=== PATIENT | female | born 1990 | race Caucasian/White ===

== ENCOUNTER → 2016-11-24 | Outpatient (CLI) | payer MEDICAID ==
[~2016-11-24] MED LIST: ACID REDUCER 1150 MG PO; ADVIL LIQUI-GE200 MG PO; BACLOFEN10 M1 PO; BENTYL 20MG TAB20 MG PO; CIPRO 250MG TA250 MG PO; DAYQUIL COLD/FL1 SGL PO; ED ZOFRAN4 TAB/BOTT PO; HCTZ 25MG25 MG PO; LEXAPRO 10MG10 MG PO; METOPROLOL SUCC25 M1 PO; PREDNISONE20 MG PO; PREMIERPRO RX5 MG/GM OP; TUSS PO; XANAX 0.5MG0.5 MG PO
== END ==
LOC: RAD 11:24
DX: E07.89 Other specified disorders of thyroid (principal); E04.1 Nontoxic single thyroid nodule

== ENCOUNTER → 2017-02-22 | Outpatient (CLI) | payer MEDICAID | LOC: LAB 11:18 | DX: Z01.419 Encounter for gynecological examination (general) (routine) without abnormal findings (principal); E66.01 Morbid (severe) obesity due to excess calories; F41.8 Other specified anxiety disorders; E07.89 Other specified disorders of thyroid; Z86.19 Personal history of other infectious and parasitic diseases | CPT/HCPCS: Q0111 ==

== ENCOUNTER → 2017-06-05 | Outpatient (CLI) | payer MEDICAID ==
[2016-10-21 11:30] VITALS: BP 127/84
== END ==
LOC: LAB 12:05
DX: E07.89 Other specified disorders of thyroid (principal)

== ENCOUNTER 2017-06-08 19:49 | Emergency (ER) | payer MEDICAID ==
[~2017-06-08] VITALS: Ht 162.6 cm; Wt 137.3 kg
[~2017-06-08 19:49] MED LIST changes: -METOPROLOL SUCC25 M1 PO
[2017-06-08] MEDS ORDERED: METOPROLOL SUCC25 M1 PO (20:09)
[2017-06-08 21:22] VITALS: BP 139/93
== END 2017-06-08 21:19 | disposition home or self-care (01) ==
LOC: ED 19:49
DX: S31.41XA Laceration without foreign body of vagina and vulva, initial encounter (principal); X58.XXXA Exposure to other specified factors, initial encounter; I10 Essential (primary) hypertension; F17.210 Nicotine dependence, cigarettes, uncomplicated; F41.9 Anxiety disorder, unspecified

== ENCOUNTER → 2017-06-08 | Outpatient (CLI) | payer MEDICAID ==
[2016-10-21 11:30] VITALS: BP 127/84
== END ==
LOC: LAB 10:27
DX: N93.9 Abnormal uterine and vaginal bleeding, unspecified (principal); B95.1 Streptococcus, group B, as the cause of diseases classified elsewhere; Z87.59 Personal history of other complications of pregnancy, childbirth and the puerperium
CPT/HCPCS: Q0111

== ENCOUNTER → 2017-08-17 | Outpatient (CLI) | payer MEDICAID ==
[~2017-08-17] MED LIST changes: +METOPROLOL SUCC25 M1 PO
== END ==
LOC: LAB 09:13
DX: R53.83 Other fatigue (principal); T68.XXXA Hypothermia, initial encounter; E07.89 Other specified disorders of thyroid

== ENCOUNTER → 2017-09-12 | Outpatient (CLI) | payer MEDICAID ==
[2017-09-12 13:57] LABS: EOS # 0.1 (0.04-0.40); EOS % 1.2 % (1.0-5.0); HEMOGLOBIN 14.5 g/dL (12.5-16.0); LYMPH# 1.9 (1.50-4.00); MEAN CELL VOLUME 84 fl (78-100); MEAN CORPUSCULAR HEMOGLOBIN 28 pg (27-31); MEAN CORPUSCULAR HGB CONC 34 g/dL (33-37); MEAN PLATELET VOLUME 10.5 fl (7.4-10.4); MONO # 0.6 (0.20-0.80); PLATELET COUNT 235 K/mm3 (130-400); RED BLOOD COUNT 5.13 M/mm3 (4.10-5.30); RED CELL DISTRIBUTION WIDTH 12.8 % (11.5-14.5); WHITE BLOOD COUNT 7.6 K/mm3 (4.8-10.8)
[2017-09-12 14:10] LABS: ALBUMIN 3.9 g/dL (3.5-5.0); BUN/CREATININE RATIO 12.4 (6.0-26.0); CALCIUM 9.3 mg/dL (8.4-10.2); POTASSIUM 3.3 mmol/L (3.6-5.0); TOTAL PROTEIN 7.8 g/dL (6.3-8.2)
[2017-09-12 14:14] LABS: URINE APPEARANCE CLEAR; URINE BILIRUBIN NEGATIVE (NEGATIVE); URINE BLOOD 50 ery/uL (NEGATIVE); URINE COLOR YELLOW; URINE GLUCOSE NEGATIVE (NEGATIVE); URINE KETONE NEGATIVE (NEGATIVE); URINE LEUKOCYTE ESTERASE NEGATIVE (NEGATIVE); URINE NITRATE NEGATIVE (NEGATIVE); URINE PROTEIN(semi-quant) NEGATIVE (NEGATIVE); URINE UROBILINOGEN NORMAL (NORMAL); URINE WBC 0-1 /hpf (0-3)
== END ==
LOC: LAB 13:40
PROVIDERS: Nurse Practitioner Family
DX: R10.84 Generalized abdominal pain (principal)

== ENCOUNTER → 2017-11-17 | Outpatient (CLI) | payer MEDICAID | LOC: LAB 16:06 | DX: I10 Essential (primary) hypertension (principal); Z88.5 Allergy status to narcotic agent ==

== ENCOUNTER → 2018-03-12 | Outpatient (CLI) | payer MEDICAID | LOC: RAD 15:03 | DX: M79.644 Pain in right finger(s) (principal); Z88.5 Allergy status to narcotic agent ==

== ENCOUNTER 2019-03-03 12:15 | Emergency (ER) | payer MEDICAID ==
[~2019-03-03] VITALS: Ht 162.6 cm; Wt 134.5 kg
[2019-03-03] MEDS ORDERED: TYLENOL EXTRA500 M2 PO (12:26)
[2019-03-03 14:14] VITALS: BP 137/71
== END 2019-03-03 14:14 | disposition home or self-care (01) ==
LOC: ED 12:15
DX: S93.401A Sprain of unspecified ligament of right ankle, initial encounter (principal); F41.9 Anxiety disorder, unspecified; Q60.0 Renal agenesis, unilateral; W00.1XXA Fall from stairs and steps due to ice and snow, initial encounter; Y92.009 Unspecified place in unspecified non-institutional (private) residence as the place of occurrence of the external cause
CPT/HCPCS: J1885

== ENCOUNTER → 2019-05-24 | Outpatient (CLI) | payer MEDICAID ==
[~2019-05-24] MED LIST changes: +TYLENOL EXTRA500 M2 PO
[2019-05-24 12:49] LABS: CLUE CELLS NOT OBSERVED (Not Observd)
== END ==
LOC: LAB 12:34
PROVIDERS: Physician Assistant
DX: N89.8 Other specified noninflammatory disorders of vagina (principal)
CPT/HCPCS: Q0111

== ENCOUNTER → 2020-02-05 | Outpatient (CLI) | payer MEDICAID ==
[2020-02-05 10:55] LABS: POTASSIUM 3.8 mmol/L (3.5-5.1)
[2020-02-05 10:56] LABS: ALBUMIN 3.9 g/dL (3.5-5.0)
[2020-02-05 10:57] LABS: CALCIUM 9.1 mg/dL (8.3-10.5)
[2020-02-05 10:58] LABS: TOTAL PROTEIN 7.8 g/dL (6.4-8.3)
[2020-02-05 11:00] LABS: TOTAL BILIRUBIN 1.2 mg/dL (0.2-1.2)
== END ==
LOC: LAB 10:36
PROVIDERS: Family Medicine
DX: E28.2 Polycystic ovarian syndrome (principal); N64.4 Mastodynia; N92.6 Irregular menstruation, unspecified

== ENCOUNTER → 2020-09-17 | Outpatient (CLI) | payer MEDICAID | LOC: RAD 10:22 | DX: G43.009 Migraine without aura, not intractable, without status migrainosus (principal); H47.10 Unspecified papilledema | CPT/HCPCS: A9585 ==

== ENCOUNTER → 2021-02-02 | Outpatient (CLI) | payer MEDICAID | LOC: LAB 09:05 | DX: Z20.822 Contact with and (suspected) exposure to COVID-19 (principal) ==

== ENCOUNTER 2021-05-10 17:39 | Emergency (ER) | payer MEDICAID ==
[2021-05-10 18:58] LABS: BASO # 0.03 (0.02-0.10); EOS % 1.1 % (1.0-5.0); HEMATOCRIT 43.1 % (37.0-47.0); HEMOGLOBIN 14.2 g/dL (12.5-16.0); LYMPH# 1.75 (1.50-4.00); MEAN CELL VOLUME 86 fl (78-100); MEAN CORPUSCULAR HEMOGLOBIN 28 pg (27-31); MEAN CORPUSCULAR HGB CONC 33 g/dL (33-37); MEAN PLATELET VOLUME 10.7 fl (7.4-10.4); MONO # 0.67 (0.20-0.80); NEU # 6.16 (1.40-6.50); PLATELET COUNT 226 K/mm3 (130-400); RED CELL DISTRIBUTION WIDTH 12.7 % (11.5-14.5); WHITE BLOOD COUNT 8.7 K/mm3 (4.8-10.8)
[2021-05-10 19:17] LABS: ALBUMIN 3.7 g/dL (3.5-5.0); POTASSIUM 3.9 mmol/L (3.5-5.1)
[2021-05-10 19:19] LABS: CALCIUM 8.8 mg/dL (8.3-10.5)
[2021-05-10 19:20] LABS: TOTAL PROTEIN 7.2 g/dL (6.4-8.3)
[2021-05-10 19:22] LABS: TOTAL BILIRUBIN 1.3 mg/dL (0.2-1.2)
[2021-05-10 20:44] VITALS: BP 145/90
== END 2021-05-10 20:44 | disposition home or self-care (01) ==
LOC: ED 17:39
PROVIDERS: Nurse Practitioner
DX: S29.011A Strain of muscle and tendon of front wall of thorax, initial encounter (principal); Z88.6 Allergy status to analgesic agent; X58.XXXA Exposure to other specified factors, initial encounter; Y99.0 Civilian activity done for income or pay
CPT/HCPCS: J1885

== ENCOUNTER → 2021-08-18 | Outpatient (CLI) | payer MEDICAID ==
[2021-08-18 17:13] LABS: POTASSIUM 3.6 mmol/L (3.5-5.1)
[2021-08-18 17:14] LABS: CALCIUM 9.6 mg/dL (8.3-10.5)
== END ==
LOC: LAB 16:50
PROVIDERS: Family Medicine
DX: R13.10 Dysphagia, unspecified (principal)

== ENCOUNTER 2021-08-26 12:37 | Outpatient (RCR) | payer MEDICAID | END 2021-11-24 | disposition home or self-care (01) | LOC: LAB | DX: K21.00 Gastro-esophageal reflux disease with esophagitis, without bleeding (principal) ==

== ENCOUNTER 2021-11-01 22:23 | Emergency (ER) | payer MEDICAID ==
[~2021-11-01] VITALS: Ht 162.6 cm; Wt 136.4 kg
[2021-11-01 22:57] LABS: HEMATOCRIT 44.7 % (37.0-47.0); HEMOGLOBIN 14.9 g/dL (12.5-16.0); MEAN CELL VOLUME 88 fl (78-100); MEAN CORPUSCULAR HEMOGLOBIN 29 pg (27-31); MEAN CORPUSCULAR HGB CONC 33 g/dL (33-37); MEAN PLATELET VOLUME 10.8 fl (7.4-10.4); PLATELET COUNT 186 K/mm3 (130-400); RED BLOOD COUNT 5.09 M/mm3 (4.10-5.30); RED CELL DISTRIBUTION WIDTH 12.4 % (11.5-14.5); WHITE BLOOD COUNT 5.5 K/mm3 (4.8-10.8)
[2021-11-01 23:10] LABS: ALBUMIN 3.9 g/dL (3.5-5.0); POTASSIUM 3.5 mmol/L (3.5-5.1)
[2021-11-01 23:13] LABS: TOTAL PROTEIN 7.3 g/dL (6.4-8.3)
[2021-11-01 23:15] LABS: TOTAL BILIRUBIN 1.3 mg/dL (0.2-1.2)
[2021-11-01 23:27] LABS: LYMPHOCYTE 5 % (20-51); MONOCYTE 6 % (3-10); NEUTROPHILS 89 % (42-75)
[2021-11-02 00:08] VITALS: BP 120/81
== END 2021-11-02 00:08 | disposition home or self-care (01) ==
LOC: ED 22:23
PROVIDERS: Nurse Practitioner
DX: U07.1 COVID-19 (principal); J98.8 Other specified respiratory disorders

== ENCOUNTER → 2021-12-06 | Outpatient (CLI) | payer MEDICAID | LOC: LAB 18:01 | DX: U07.1 COVID-19 (principal) ==

== ENCOUNTER → 2022-02-25 | Outpatient (CLI) | payer MEDICAID ==
[2022-02-25 12:26] LABS: POTASSIUM 3.9 mmol/L (3.5-5.1)
[2022-02-25 12:27] LABS: ALBUMIN 3.8 g/dL (3.5-5.0)
[2022-02-25 12:28] LABS: CALCIUM 9.2 mg/dL (8.3-10.5)
[2022-02-25 12:29] LABS: TOTAL PROTEIN 7.3 g/dL (6.4-8.3)
[2022-02-25 12:31] LABS: TOTAL BILIRUBIN 1.3 mg/dL (0.2-1.2)
[2022-02-26 01:50] LABS: PROGESTERONE 0.2 ng/mL (())
== END ==
LOC: LAB 11:54
PROVIDERS: Family Medicine
DX: E28.2 Polycystic ovarian syndrome (principal); Z86.16 Personal history of COVID-19

== ENCOUNTER → 2022-06-17 | Outpatient (CLI) | payer MEDICAID ==
[2022-06-17 13:58] LABS: BASO # 0.04 K/mm3 (0.02-0.10); EOS % 1.3 % (1.0-5.0); HEMATOCRIT 44.7 % (37.0-47.0); HEMOGLOBIN 14.6 g/dL (12.5-16.0); LYMPH# 2.23 K/mm3 (1.50-4.00); MEAN CELL VOLUME 88 fl (78-100); MEAN CORPUSCULAR HEMOGLOBIN 29 pg (27-31); MEAN CORPUSCULAR HGB CONC 33 g/dL (33-37); MEAN PLATELET VOLUME 10.7 fl (7.4-10.4); MONO # 0.65 K/mm3 (0.20-0.80); NEU # 4.56 K/mm3 (1.40-6.50); PLATELET COUNT 233 K/mm3 (130-400); RED BLOOD COUNT 5.11 M/mm3 (4.10-5.30); RED CELL DISTRIBUTION WIDTH 12.3 % (11.5-14.5); WHITE BLOOD COUNT 7.6 K/mm3 (4.8-10.8)
== END ==
LOC: LAB 13:42
PROVIDERS: Family Medicine
DX: N93.9 Abnormal uterine and vaginal bleeding, unspecified (principal)

== ENCOUNTER → 2022-07-12 | Outpatient (CLI) | payer MEDICAID | LOC: LAB 11:33 | DX: U07.1 COVID-19 (principal) ==

== ENCOUNTER 2022-10-10 22:22 | Emergency (ER) | payer MEDICAID ==
[~2022-10-10] VITALS: Wt 140.9 kg
[2022-10-11 00:59] LABS: BASO # 0.03 K/mm3 (0.02-0.10); EOS # 0.03 K/mm3 (0.04-0.40); EOS % 0.3 % (1.0-5.0); HEMATOCRIT 46.1 % (37.0-47.0); HEMOGLOBIN 15.3 g/dL (12.5-16.0); LYMPH# 1.43 K/mm3 (1.50-4.00); MEAN CELL VOLUME 87 fl (78-100); MEAN CORPUSCULAR HEMOGLOBIN 29 pg (27-31); MEAN CORPUSCULAR HGB CONC 33 g/dL (33-37); MEAN PLATELET VOLUME 11.6 fl (7.4-10.4); MONO # 0.61 K/mm3 (0.20-0.80); NEU # 9.71 K/mm3 (1.40-6.50); PLATELET COUNT 207 K/mm3 (130-400); RED BLOOD COUNT 5.31 M/mm3 (4.10-5.30); RED CELL DISTRIBUTION WIDTH 12.6 % (11.5-14.5); WHITE BLOOD COUNT 11.8 K/mm3 (4.8-10.8)
[2022-10-11 01:12] LABS: POTASSIUM 4.3 mmol/L (3.5-5.1)
[2022-10-11 01:13] LABS: CALCIUM 9.3 mg/dL (8.3-10.5)
[2022-10-11 01:16] LABS: TOTAL BILIRUBIN 2.1 mg/dL (0.2-1.2)
[2022-10-11 01:43] LABS: PH-URINE 6.5 (5.0 - 8.0); URINE APPEARANCE HAZY; URINE BILIRUBIN NEGATIVE (NEGATIVE); URINE BLOOD NEGATIVE (NEGATIVE); URINE COLOR YELLOW; URINE GLUCOSE NEGATIVE (NEGATIVE); URINE KETONE 2+ (NEGATIVE); URINE LEUKOCYTE ESTERASE NEGATIVE (NEGATIVE); URINE MUCUS PRESENT (NOT PRESENT); URINE NITRATE NEGATIVE (NEGATIVE); URINE PROTEIN(semi-quant) TRACE (NEGATIVE); URINE UROBILINOGEN NORMAL (NORMAL); URINE WBC 0-1 /hpf (0-3)
[2022-10-11] MEDS ORDERED: ONDANSETRON HYDR4 MG PO (02:08)
[2022-10-11 03:24] VITALS: BP 142/78
== END 2022-10-11 03:24 | disposition home or self-care (01) ==
LOC: ED 22:22
PROVIDERS: Physician Assistant
DX: K52.9 Noninfective gastroenteritis and colitis, unspecified (principal); Z32.02 Encounter for pregnancy test, result negative; Z28.310 Unvaccinated for COVID-19
CPT/HCPCS: J2550; J7030

== ENCOUNTER → 2024-05-31 | Outpatient (REF) | payer OTHER ==
[~2024-05-31] MED LIST changes: +ONDANSETRON HYDR4 MG PO
[2024-05-31 18:15] LABS: HEMATOCRIT 45.3 % (37.0-47.0); HEMOGLOBIN 14.8 g/dL (12.5-16.0); MEAN PLATELET VOLUME 11.4 fl (7.4-10.4); RED BLOOD COUNT 5.23 M/mm3 (4.10-5.30); RED CELL DISTRIBUTION WIDTH 12.7 % (11.5-14.5); WHITE BLOOD COUNT 5.9 K/mm3 (4.8-10.8)
[2024-05-31 18:18] LABS: CALCIUM 9.4 mg/dL (8.3-10.5)
[2024-05-31 18:20] LABS: TOTAL PROTEIN 7.3 g/dL (6.4-8.3)
[2024-05-31 18:21] LABS: TOTAL BILIRUBIN 1.7 mg/dL (0.2-1.2)
== END ==
LOC: LAB 17:41
PROVIDERS: Nurse Practitioner Family
DX: R52 Pain, unspecified (principal)

== ENCOUNTER 2024-06-22 01:03 | Emergency (ER) | payer OTHER ==
[~2024-06-22] VITALS: Ht 162.6 cm; Wt 130.0 kg
[2024-06-22 01:26] LABS: BASO # 0.03 K/mm3 (0.02-0.10); EOS # 0.07 K/mm3 (0.04-0.40); EOS % 0.8 % (1.0-5.0); HEMATOCRIT 43.2 % (37.0-47.0); HEMOGLOBIN 14.2 g/dL (12.5-16.0); LYMPH# 2.69 K/mm3 (1.50-4.00); MEAN CELL VOLUME 87 fl (78-100); MEAN CORPUSCULAR HEMOGLOBIN 29 pg (27-31); MEAN CORPUSCULAR HGB CONC 33 g/dL (33-37); MEAN PLATELET VOLUME 11.4 fl (7.4-10.4); MONO # 0.66 K/mm3 (0.20-0.80); NEU # 5.43 K/mm3 (1.40-6.50); PLATELET COUNT 181 K/mm3 (130-400); RED BLOOD COUNT 4.95 M/mm3 (4.10-5.30); RED CELL DISTRIBUTION WIDTH 12.9 % (11.5-14.5); WHITE BLOOD COUNT 8.9 K/mm3 (4.8-10.8)
[2024-06-22 01:34] LABS: SODIUM 138 mmol/L (136-145)
[2024-06-22 01:35] LABS: CALCIUM 9.6 mg/dL (8.3-10.5)
[2024-06-22 01:36] LABS: GLUCOSE 97 mg/dL (65-105); TOTAL PROTEIN 7.1 g/dL (6.4-8.3)
[2024-06-22 01:37] LABS: CARBON DIOXIDE 23 mmol/L (22-29)
[2024-06-22 01:38] LABS: TOTAL BILIRUBIN 1.6 mg/dL (0.2-1.2)
[2024-06-22 01:41] LABS: AST-SGOT 24 U/L (5-34)
[2024-06-22 01:42] LABS: ALT/SGPT 32 U/L (0-55)
[2024-06-22 01:43] LABS: LIPASE 34 U/L (8-78)
[2024-06-22 01:51] LABS: TROPONIN-I < 0.030 ng/mL (0.00-0.033)
[2024-06-22 02:28] LABS: URINE COLOR YELLOW (YELLOW)
[2024-06-22 02:29] LABS: URINE APPEARANCE CLEAR (CLEAR); URINE GLUCOSE NEGATIVE (NEGATIVE); URINE PROTEIN(semi-quant) NEGATIVE (NEGATIVE)
[2024-06-22 02:30] LABS: URINE BILIRUBIN NEGATIVE (NEGATIVE); URINE BLOOD NEGATIVE (NEGATIVE); URINE KETONE TRACE (NEGATIVE); URINE LEUKOCYTE ESTERASE NEGATIVE (NEGATIVE); URINE NITRATE NEGATIVE (NEGATIVE)
[2024-06-22] MEDS ORDERED: Potassium Bicarbonate/Citrate 20 MEQ Effervescent TAB PO ONE (02:30)
[2024-06-22 02:36] LABS: URINE MUCUS PRESENT (NOT PRESENT); URINE WBC 0-1 /hpf (0-3)
[2024-06-22 04:50] VITALS: BP 133/83
== END 2024-06-22 04:59 | disposition home or self-care (01) ==
LOC: ED 01:03
PROVIDERS: Family Medicine
DX: R00.2 Palpitations (principal); E87.6 Hypokalemia; R35.0 Frequency of micturition
CPT/HCPCS: J7120

== ENCOUNTER → 2024-07-12 | Outpatient (REF) | payer OTHER ==
[~2024-07-12] MED LIST changes: +AMOXIL500 M1; +GOODY'S EX-STR1 EAC1 PO
[2024-07-12 16:54] LABS: URINE APPEARANCE CLEAR (CLEAR); URINE BILIRUBIN NEGATIVE (NEGATIVE); URINE BLOOD NEGATIVE (NEGATIVE); URINE COLOR YELLOW (YELLOW); URINE GLUCOSE NEGATIVE (NEGATIVE); URINE KETONE NEGATIVE (NEGATIVE); URINE LEUKOCYTE ESTERASE NEGATIVE (NEGATIVE); URINE NITRATE NEGATIVE (NEGATIVE); URINE PROTEIN(semi-quant) NEGATIVE (NEGATIVE)
== END ==
LOC: LAB 16:01
PROVIDERS: Nurse Practitioner Family
DX: J02.9 Acute pharyngitis, unspecified (principal); R35.0 Frequency of micturition

== ENCOUNTER 2024-07-14 13:13 | Emergency (ER) | payer OTHER ==
[~2024-07-14] VITALS: Ht 162.6 cm; Wt 129.5 kg
[~2024-07-14 13:13] MED LIST changes: -AMOXIL500 M1; -GOODY'S EX-STR1 EAC1 PO
[2024-07-14] MEDS ORDERED: AMOXIL500 M1 (13:36)
[2024-07-14] MEDS ORDERED: GOODY'S EX-STR1 EAC1 PO (13:38)
[2024-07-14 14:24] LABS: BASO # 0.03 K/mm3 (0.02-0.10); EOS # 0.04 K/mm3 (0.04-0.40); EOS % 0.4 % (1.0-5.0); HEMATOCRIT 44.7 % (37.0-47.0); HEMOGLOBIN 14.8 g/dL (12.5-16.0); LYMPH# 1.61 K/mm3 (1.50-4.00); MEAN CELL VOLUME 87 fl (78-100); MEAN CORPUSCULAR HEMOGLOBIN 29 pg (27-31); MEAN CORPUSCULAR HGB CONC 33 g/dL (33-37); MEAN PLATELET VOLUME 10.5 fl (7.4-10.4); NEU # 8.01 K/mm3 (1.40-6.50); PLATELET COUNT 220 K/mm3 (130-400); RED BLOOD COUNT 5.14 M/mm3 (4.10-5.30); RED CELL DISTRIBUTION WIDTH 12.8 % (11.5-14.5); WHITE BLOOD COUNT 10.5 K/mm3 (4.8-10.8)
[2024-07-14 14:35] LABS: ALBUMIN 3.8 g/dL (3.5-5.0)
[2024-07-14 14:37] LABS: CALCIUM 9.2 mg/dL (8.3-10.5)
[2024-07-14 14:38] LABS: TOTAL PROTEIN 7.6 g/dL (6.4-8.3)
[2024-07-14 14:40] LABS: TOTAL BILIRUBIN 1.6 mg/dL (0.2-1.2)
[2024-07-14 15:16] VITALS: BP 127/94
== END 2024-07-14 15:15 | disposition home or self-care (01) ==
LOC: ED 13:13
PROVIDERS: Physician Assistant
DX: N92.6 Irregular menstruation, unspecified (principal)

== ENCOUNTER → 2024-08-07 | Outpatient (CLI) | payer OTHER ==
[~2024-08-07] MED LIST changes: +AMOXIL500 M1; +GOODY'S EX-STR1 EAC1 PO
== END ==
LOC: RAD 09:56
DX: N92.1 Excessive and frequent menstruation with irregular cycle (principal)

== ENCOUNTER → 2024-09-17 | Outpatient (CLI) | payer OTHER | LOC: LAB 17:19 | DX: N92.5 Other specified irregular menstruation (principal) ==

== ENCOUNTER → 2024-12-18 | Outpatient (CLI) | payer OTHER, MEDICAID ==
[2024-12-18 14:03] LABS: CLUE CELLS PRESENT (Not Observd)
== END ==
LOC: LAB 13:33
PROVIDERS: Nurse Practitioner Family
DX: L29.3 Anogenital pruritus, unspecified (principal)
CPT/HCPCS: Q0111